=== PATIENT | female | born 1940 | race Caucasian/White ===

== ENCOUNTER 2018-01-16 19:00 | Emergency (ER) | payer OTHER, MEDICARE ==
[~2018-01-16] VITALS: Ht 167.6 cm; Wt 88.0 kg
[2018-01-16 19:35] VITALS: BP 148/80
== END 2018-01-16 19:37 | disposition home or self-care (01) ==
LOC: FSED 19:00
DX: S91.205A Unspecified open wound of left lesser toe(s) with damage to nail, initial encounter (principal); W22.8XXA Striking against or struck by other objects, initial encounter; Y92.008 Other place in unspecified non-institutional (private) residence as the place of occurrence of the external cause
CPT/HCPCS: 99282

== ENCOUNTER 2018-02-04 12:53 | Emergency (ER) | payer MEDICARE, OTHER ==
[~2018-02-04] VITALS: Ht 167.6 cm; Wt 88.0 kg
[2018-02-04] MEDS ORDERED: LISINOPRIL10 MG PO (13:19)
[2018-02-04] MEDS ORDERED: PLAVIX75 MG PO (13:19)
[2018-02-04] MEDS ORDERED: HYDRALAZINE HCL25 MG PO (13:19)
[2018-02-04] MEDS ORDERED: COREG12.5 MG PO (13:19)
[2018-02-04] MEDS ORDERED: DICLOFENAC TOP (13:19)
[2018-02-04] MEDS ORDERED: ATORVASTATIN CA10 MG PO (13:19)
[2018-02-04] MEDS ORDERED: OYSTER SHELL C1 EACH PO (13:19)
[2018-02-04] MEDS ORDERED: LASIX20 MG PO (13:19)
[2018-02-04] MEDS ORDERED: DIFLUCAN150 MG PO (13:19)
[2018-02-04] MEDS ORDERED: CALCIUM 500+D1 EACH (13:19)
[2018-02-04] MEDS ORDERED: BACLOFEN10 MG PO (13:19)
[2018-02-04] MEDS ORDERED: ASPIR 8181 MG PO (13:19)
[2018-02-04] MEDS ORDERED: MAGNESIUM OXID400 MG PO (13:19)
[2018-02-04] MEDS ORDERED: COQ-10100 MG PO (13:19)
[2018-02-04] MEDS ORDERED: CLOTRIMAZOLE-BE15 GM TOP (13:19)
[2018-02-04] MEDS ORDERED: ROPINIROLE HCL1 MG PO (13:22)
[2018-02-04] MEDS ORDERED: POTASSIUM CHLO10 ME1 PO (13:22)
[2018-02-04] MEDS ORDERED: UREA 40% TOP (13:23)
== END 2018-02-04 13:36 | disposition home or self-care (01) ==
LOC: FSED 12:53
DX: I10 Essential (primary) hypertension (principal)
CPT/HCPCS: 99283

== ENCOUNTER 2018-05-21 16:15 | Observation (INO) | payer OTHER ==
[~2018-05-21] VITALS: Ht 167.6 cm; Wt 88.1 kg
[~2018-05-21 16:15] MED LIST: ASPIR 8181 MG PO; ATORVASTATIN CA10 MG PO; BACLOFEN10 MG PO; CALCIUM 500+D1 EACH PO; CLOTRIMAZOLE-BE15 GM TOP; COQ-10100 MG PO; COREG12.5 MG PO; DICLOFENAC TOP; DIFLUCAN150 MG PO; HYDRALAZINE HCL25 MG PO; LASIX20 MG PO; LISINOPRIL10 MG PO; MAGNESIUM OXID400 MG PO; OYSTER SHELL C1 EACH PO; PLAVIX75 MG PO; POTASSIUM CHLO10 ME1 PO; ROPINIROLE HCL1 MG PO; UREA 40% TOP
[2018-05-21] MEDS ORDERED: CARVEDILOL25 MG PO (17:01)
[2018-05-21] MEDS ORDERED: LANTUS 3ML100 UNITS/ SQ (17:07)
[2018-05-21] MEDS ORDERED: GLUCAGON EMERGEN1 MG (17:07)
[2018-05-21] MEDS ORDERED: MUPIROCIN22 GM TOP (17:09)
[2018-05-21] MEDS ORDERED: HUMULIN R100 UNIT/2 SQ ×2 (17:09→19:39)
[2018-05-21] MEDS ORDERED: NEOMYCIN-POLYMY10 ML EACH EAR (17:09)
--- NOTE | 2018-05-21 17:46 | Diagnostic Imaging Report ---
History: Fall Comparison studies: None Technique: Axial images were obtained from the skull base to the vertex. Coronal and sagittal reconstructions obtained from the axial data. Dose modulation, iterative reconstruction, and/or weight based adjustment of the mA/kV was utilized to reduce the radiation dose to as low as reasonably achievable. Findings: Scalp/skull: No abnormalities. No fractures, blastic or lytic lesions. Extra-axial spaces: No masses. No fluid collections. Brain sulci: Mildly prominent. Ventricles: Mild compensatory dilatation. No hydrocephalus. Parenchyma: Cortical encephalomalacic changes in the medial left parietal lobe (precuneus) and medial occipital lobe (above the calcarine fissure) are the result of an old vascular insult that compromised the corresponding parieto-occipital branches of either the left WINTERIZER or MCA. Ill-defined confluent hypodensities in the supratentorial white matter are small vessel ischemic changes. No masses, hemorrhage, acute or chronic cortical vascular insults. Sellar/suprasellar region: No abnormalities Craniocervical junction: Patent foramen magnum. No Chiari one malformation. Incidental atherosclerotic calcifications in the carotid siphons, basilar and left vertebral artery. IMPRESSION: No acute abnormalities. Chronic findings: 1. Mild generalized volume loss. 2. Moderate supratentorial white matter low-density ischemic changes. 3. Focal cortical medial parieto-occipital vascular insult Signed by: Dr. Sb Long M.D. on 05/21/2018 5:43 PM
--- NOTE | 2018-05-21 18:05 | Diagnostic Imaging Report ---
EXAMINATION: PA and lateral views of the chest. COMPARISON: None CLINICAL HISTORY: Status post fall, hit back of head DISCUSSION: Lines/tubes: None. Lungs: Lungs are well-inflated. Mild prominence of the interstitial markings, likely reflecting chronic interstitial changes. 6-7 mm nodular density in the right upper lobe. Adjacent linear opacities, which may reflect scarring. Lungs are otherwise clear, without consolidation or pulmonary edema. Pleura: There is no pleural effusion or pneumothorax. Heart and mediastinum: Cardiomediastinal silhouette is unremarkable. Pulmonary vasculature is normal. Tortuous aorta, with atherosclerotic calcification. Bones and soft tissues: Generalized osteopenia limits evaluation of the bony structures. No acute bony abnormalities, within the limitations of the study. IMPRESSION: 1. No acute cardiopulmonary abnormalities. 2. 6-7 mm nodular density in the right upper lobe. Prior films, if available, would be helpful for comparison. If no prior films can be obtained, recommend chest PA and lateral in 2 months document stability, alternatively, a chest CT may be obtained for further evaluation, on a nonemergent basis. 3. Linear opacities in the right upper lobe may reflect scarring. These can also be evaluated as above. Signed by: Dr. Dimas Guerrier M.D. on 05/21/2018 6:02 PM
[2018-05-21] MEDS ORDERED: HUMULIN-R100 UNITS/ SQ (19:39)
--- OUTSIDE RECORDS SUMMARY | 2018-05-21 19:39 | XMS REPORT ---
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 Allergies, Adverse Reactions, Alerts This patient has no known allergies or adverse reactions. Medications This patient has no known medications. Results Test Description Test Time Test Comments Text Results Atomic Results Result Comments CXR 2 [facility] 2018-05-21 17:58:00 [place] [address] Patient Name: OK MCKENNA MR #: [id number] : 1940 Age/Sex: 78/F Req #: [id number] [facility] Physician: Ordered by: STEFAN JAMES MD Report #: [id number] Location: [facility] Room/Bed: Procedure: [id number] HOPD/CXR 2 VIEW - [facility] Exam Date: 05/21/18 Exam Time: 1752 REPORT STATUS: Signed EXAMINATION: PA and lateral views of the chest. COMPARISON: None CLINICAL HISTORY: Status post fall, hit back of head DISCUSSION: Lines/tubes: None. Lungs: Lungs are well-inflated. Mild prominence of the interstitial markings, likely reflecting chronic interstitial changes. 6-7 mm nodular density in the right upper lobe. Adjacent linear opacities, which may reflect scarring. Lungs are otherwise clear, without consolidation or pulmonary edema. Pleura: There is no pleural effusion or pneumothorax. Heart and mediastinum: Cardiomediastinal silhouette is unremarkable. Pulmonary vasculature is normal. Tortuous aorta, with atherosclerotic calcification. Bones and soft tissues: Generalized osteopenia limits evaluation of the bony structures. No acute bony abnormalities, within the limitations of the study. IMPRESSION: 1. No acute cardiopulmonary abnormalities. 2. 6-7 mm nodular density in the right upper lobe. Prior films, if available, would be helpful for comp arison. If no prior films can be obtained, recommend chest PA and lateral in 2 months document stability, alternatively, a chest CT may be obtained for further evaluation, on a nonemergent basis. 3. Linear opacities in the right upper lobe may reflect scarring. These can also be evaluated as above. Signed by: Dr. Misty Guerrier M.D. on 05/21/2018 6:02 PM Dictated By: MISTY GUERRIER MD 01 Transcribed By: BRISEYDA on 05/21/181801 COPY TO: STEFAN JAMES MD CT BRAIN WO-HOPD 2018-05-21 17:39:00 [place] [address] Patient Name: OK MCKENNA MR #: [id number] : 1940 Age/Sex: 78/F Req #: [id number] Adm Physician: Ordered by: STEFAN JAMES MD Report #: [id number] Location: [facility] Room/Bed: Procedure: [id number] HOPD/CT BRAIN WO-HOPD Exam Date: 05/21/18 Exam Time: 1740 REPORT STATUS: Signed History: Fall Comparison studies: None Technique: Axial images were obtained from the skull base to the vertex. Coronal and sagittal reconstructions obtained from the axial data. Dose modulation, iterative reconstruction, and/or weight based adjustment of the mA/kV was utilized to reduce the radiation dose to as low as reasonably achievable. Findings: Scalp/skull: No abnormalities. No fractures, blastic or lytic lesions. Extra-axial spaces: No masses. No fluid collections. Brain sulci: Mildly prominent. Ventricles: Mild compensatory dilatation. No hydrocephalus. Parenchyma: Cortical encephalomalacic changes in the medial left parietal lobe (precuneus) and medial occipital lobe (above the calcarine fissure) are the result of an old vascular insult that compromised the corresponding parieto-occipital branches of either the left DRY CAN TENDER or MCA. Ill-defined confluent hypodensities in the supratentorial white matter are small vessel ischemic changes. No masses, hemorrhage, acute or chronic cortical vascular insults. Sellar/suprasellar region: No abnormalities Craniocervical junction: Patent foramen magnum. No Chiari one malformation. Incidental atherosclerotic calcifications in the carotid siphons, basilar and left vertebral artery. IMPRESSION: No acute abnormalities. Chronic findings: 1. Mild generalized volume loss. 2. Moderate sup ratentorial white matter low-density ischemic changes. 3. Focal cortical medial parieto-occipital vascular insult Signed by: Dr. Sb Long M.D. on 05/21/2018 5:43 PM Dictated By: SB LONG MD, MD 42 Transcribed By: BRISEYDA on 05/21/181742 COPY TO: STEFAN JAMES MD
[2018-05-21] MEDS ORDERED: DEXTROSE 50% SYRINGE 50 ML IV PRN (20:00)
[2018-05-21 20:50] VITALS: BP 135/67
[2018-05-21] MEDS: INSULIN DETEMIR 100 UNIT/ML PEN SQ SCH (21:00)
[2018-05-21] MEDS: ROPINIROLE HCL 1 MG TAB PO SCH (21:31)
[2018-05-21] MEDS: ATORVASTATIN 10 MG TAB PO SCH (21:31)
[2018-05-21] MEDS: BACLOFEN 10 MG TAB PO SCH (21:31)
[2018-05-22] VITALS (7 sets, daily range): BP systolic 118–180; BP diastolic 63–80
[2018-05-22] MEDS: INSULIN REGULAR, HUMAN 100 UNIT/1 ML 3ML VIAL SQ SCH ×3 (07:30→17:49)
[2018-05-22] MEDS: ASPIRIN 81 MG CHEW TAB PO SCH (08:54)
[2018-05-22] MEDS: POTASSIUM CHLORIDE 10MEQ EA PO SCH (08:54)
[2018-05-22] MEDS: MAGNESIUM OXIDE 400 MG TAB PO SCH (08:54)
[2018-05-22] MEDS: FUROSEMIDE 20 MG TAB PO SCH ×2 (08:54→16:11)
[2018-05-22] MEDS: LISINOPRIL 20 MG TAB PO SCH (08:54)
[2018-05-22] MEDS: CLOPIDOGREL BISULFATE 75 MG TAB PO SCH (08:54)
[2018-05-22] MEDS ORDERED: LISINOPRIL 10 MG TAB PO SCH (09:00)
[2018-05-22] MEDS ORDERED: CARVEDILOL 3.125 MG TAB PO SCH ×2 (12:00→17:00)
[2018-05-22] MEDS ORDERED: HYDRALAZINE HCL 25 MG TAB PO PRN (14:30)
[2018-05-22] MEDS ORDERED: ULTRAM50 MG PO ×2 (15:41)
[2018-05-22] MEDS ORDERED: TRAMADOL HCL 50 MG TAB PO PRN (16:00)
[2018-05-22] MEDS: CARVEDILOL 12.5 MG TAB PO SCH (16:11)
[2018-05-22] MEDS ORDERED: ROPINIROLE HCL1 MG PO (16:21)
--- NOTE | 2018-05-22 16:32 | Diagnostic Imaging Report ---
Exam: Brain MRI without IV contrast History: Rule out CVA Comparison studies: Head CT 05/21/2018. Technique: Sagittal and axial T2 FS, axial DWI, axial T2*GRE, axial T1 FLAIR and axial coronal T2 FLAIR. Intravenous contrast: None Findings: Several pulse sequences are somewhat limited artifacts related to patient motion. In spite of this limitation: Scalp: Normal in signal. No masses. Bone marrow: Normal in signal intensity. Brain sulci: Mildly prominent. Ventricles: Mild compensatory dilatation. No hydrocephalus. Extra axial spaces: No mass, no fluid collection. Parenchyma: No mass, acute hemorrhage or acute ischemia. Chronic left parieto-occipital insult centered along the precuneus and cuneus gyri with encephalomalacia, gliosis and hemosiderin staining related to previous hemorrhage along the left MCA-PACKAGING ASSEMBLER cortical border zone. Scattered and mildly confluent T2 FLAIR hyperintense foci in the supratentorial white matter and in the shannan are nonspecific but most compatible with chronic microvascular ischemic changes. There are chronic lacunar infarcts in the head of the right caudate nucleus and in the left cerebellum. Suprasellar region: No abnormalities. Craniocervical junction: Patent foramen magnum. No Chiari malformation. Vessels: Normal flow-voids in the arteries and sinuses. Incidental findings: Mild mucosal thickening in the right maxillary sinus and bilateral ethmoid air cells. IMPRESSION: No acute ischemia or other acute intracranial abnormalities. Chronic findings: 1. Mild generalized volume loss. 2. Left medial parieto-occipital infarct. 3. Moderate microvascular ischemic changes. 4. 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 Signed by: Dr. Alireza Chapman M.D. on 05/22/2018 4:29 PM
[2018-05-22] MEDS: DICLOFENAC SOD 1% GEL 100 GM TUBE TP SCH ×2 (17:49→21:00)
[2018-05-22] MEDS: INSULIN LISPRO 100 UNIT/1 ML 3ML VIAL SQ SCH ×2 (17:50→21:00)
[2018-05-22] MEDS ORDERED: DICLOFENAC TOP SCH (18:00)
[2018-05-22] MEDS: BACLOFEN 10 MG TAB PO SCH (20:55)
[2018-05-22] MEDS: ATORVASTATIN 10 MG TAB PO SCH (20:55)
[2018-05-22] MEDS: ROPINIROLE HCL 1 MG TAB PO SCH (20:55)
[2018-05-22] MEDS: INSULIN DETEMIR 100 UNIT/ML PEN SQ SCH (21:00)
[2018-05-23] VITALS: BP 128/63
[2018-05-23 04:00] VITALS: BP 136/63
[2018-05-23 05:47] LABS: ANION GAP 13.7 mmol/L (8-16); BLOOD UREA NITROGEN 25 mg/dL (7-26); BUN/CREATININE RATIO 32 (6-25); CALCIUM 9.1 mg/dL (8.4-10.2); CARBON DIOXIDE 31 mmol/L (22-29); CHLORIDE 103 mmol/L (98-107); CREATINE KINASE 225 IU/L (29-168); CREATININE, SERUM 0.79 mg/dL (0.57-1.11); EST GLOMERULAR FILTRATION RATE > 60 ML/MIN (60-); GLUCOSE 101 mg/dL (74-118); MAGNESIUM 1.9 MG/DL (1.3-2.1); POTASSIUM 3.7 mmol/L (3.5-5.1); SODIUM 144 mmol/L (136-145)
[2018-05-23 06:08] LABS: THYROID STIMULATING HORMONE 2.168 uIU/mL (0.350-4.940)
[2018-05-23 06:42] LABS: BASOPHILS % 0.4 % (0.0-1.0); EOSINOPHILS # (AUTO) 0.1 (0.0-0.4); EOSINOPHILS % 1.4 % (0.0-6.0); HEMATOCRIT 36.7 % (34.2-44.1); HEMOGLOBIN 11.7 g/dL (12.0-16.0); LYMPHOCYTES # (AUTO) 1.4 (1.0-3.2); LYMPHOCYTES % 14.4 % (18.0-39.1); MEAN CORPUSCULAR HGB CONC 31.9 g/dL (31-35); MEAN CORPUSCULAR VOLUME 97.1 fL (81-99); MONOCYTES # (AUTO) 1.3 (0.2-0.8); MONOCYTES % 13.3 % (4.4-11.3); NEUTROPHILS # (AUTO) 6.8 (2.1-6.9); NEUTROPHILS % 70.1 % (38.7-80.0); PLATELET COUNT 205 x10e3/uL (140-360); RED BLOOD COUNT 3.78 x10e6/uL (3.6-5.1)
[2018-05-23] MEDS: INSULIN LISPRO 100 UNIT/1 ML 3ML VIAL SQ SCH ×3 (07:30→15:57)
[2018-05-23 07:46] LABS: FOLATE 35.7 ng/mL (7.0-15.4)
[2018-05-23] MEDS: INSULIN REGULAR, HUMAN 100 UNIT/1 ML 3ML VIAL SQ SCH ×3 (07:57→16:48)
[2018-05-23 07:59] VITALS: BP 164/71
[2018-05-23 08:30] VITALS: BP 164/71
[2018-05-23] MEDS: ASPIRIN 81 MG CHEW TAB PO SCH (09:00)
[2018-05-23] MEDS: CLOPIDOGREL BISULFATE 75 MG TAB PO SCH (09:00)
[2018-05-23] MEDS: DICLOFENAC SOD 1% GEL 100 GM TUBE TP SCH ×2 (09:00→13:15)
[2018-05-23] MEDS: FUROSEMIDE 20 MG TAB PO SCH ×2 (09:00→16:28)
[2018-05-23] MEDS: LISINOPRIL 20 MG TAB PO SCH (09:00)
[2018-05-23] MEDS: POTASSIUM CHLORIDE 10MEQ EA PO SCH (09:00)
[2018-05-23] MEDS: MAGNESIUM OXIDE 400 MG TAB PO SCH (09:00)
[2018-05-23] MEDS: CARVEDILOL 12.5 MG TAB PO SCH ×2 (10:08→16:27)
[2018-05-23] MEDS: TRAMADOL HCL 50 MG TAB PO PRN ×2 (11:21→12:21)
[2018-05-23 11:55] VITALS: BP 126/60
[2018-05-23] MEDS ORDERED: INFLUENZA VIRUS VAC SPLIT INJ 0.5 ML SYR IM NR (15:45)
[2018-05-23 15:50] VITALS: BP 140/78
== END 2018-05-23 18:27 ==
LOC: FSED 16:15 → ERHOLD 19:35 → MED/SURG 21:00
PROVIDERS: ADMIT Internal Medicine; ATTEND Internal Medicine
DX: I69.393 Ataxia following cerebral infarction (principal); E11.9 Type 2 diabetes mellitus without complications; I10 Essential (primary) hypertension; Z87.891 Personal history of nicotine dependence; D64.9 Anemia, unspecified; R91.8 Other nonspecific abnormal finding of lung field; Z88.8 Allergy status to other drugs, medicaments and biological substances; Z91.81 History of falling; Z79.4 Long term (current) use of insulin; E78.5 Hyperlipidemia, unspecified; G25.81 Restless legs syndrome; Z88.2 Allergy status to sulfonamides
CPT/HCPCS: 36415 ×2; 70450; 70551; 71046; 80048; 80053; 81003; 82550; 82553; 82607; 82746; 82948 ×2; 83735; 83880; 84443; 84484; 85025 ×2; 93005; 96372; 97116; 97163; 97530; 99284; G0378 ×3; G8978; G8979; J1817